=== PATIENT | female | born 1985 | race Caucasian/White ===

== ENCOUNTER 2017-07-30 17:28 | Emergency (ER) | payer OTHER ==
[~2017-07-30] VITALS: Ht 162.6 cm; Wt 99.0 kg
[~2017-07-30 17:28] MED LIST: GLUCTAB PO; MACR100C PO; XANA1TAB6 PO
[2017-07-30 17:39] VITALS: BP 113/53; PULSE 89; RESP 16; TEMP 98.7; O2SAT 100
[2017-07-30] MEDS ORDERED: METF500T4 PO (18:00)
[2017-07-30] MEDS ORDERED: PREN1PAK2 PO (18:01)
--- NOTE | 2017-07-30 18:10 | PD ---
HPI Chief Complaint: Related Problem Time Seen by Provider: 17:57 Travel History International Travel<30 days: No Contact w/Intl Traveler<30days: No Traveled to known affect area: No History of Present Illness HPI Patient is a 31-year-old female presents emergency department for evaluation of possible and intermittent vaginal bleeding. Patient states 2 weeks ago she was seen by Dr. Jones who told her she likely had had a miscarriage. She states that since that time she continues to have positive test and wonders if she is still . She denies any vaginal bleeding and abdominal pain dysuria vaginal discharge today. She states that her bleeding stopped several days ago. She is coming by her brother, significant other and mother. She states she had a bedside ultrasound of her abdomen but not transvaginally [address] Jones. Denies any fevers constipation abdominal pain nausea vomiting. symptoms have resolved, 2 weeks ago on the onset, associated signs symptoms as above, context as above. PFSH Past Medical History Arthritis: No Asthma: No Autoimmune Disease: No Blood Disorders: No Anxiety: Yes Depression: Yes Heart Rhythm Problems: No Cancer: No Cardiovascular Problems: No High Cholesterol: No Chemotherapy: No Chest Pain: No Congestive Heart Failure: No COPD: No Cerebrovascular Accident: No Diabetes: No Diminished Hearing: No Endocrine: No Gastrointestinal Disorders: No GERD: Yes Glaucoma: No Genitourinary: No Headaches: No Hepatitis: No Hiatal Hernia: No Heparin Induced Thrombocytopen: No Hypertension: No Immune Disorder: No Implanted Vascular Access Dvce: No Kidney Stones: No Medical other: No Musculoskeletal: Yes (HX OF BILAT KNEE DISLOCATION) Neurologic: No Psychiatric: No Reproductive: Yes (POLYCYSTIC OVARIAN DISORDER, HIGH TESTOSTERONE LEVELS) Respiratory: No Migraines: No Myocardial Infarction: No Radiation Therapy: No Renal Failure: No Seizures: No Sickle Cell Disease: No Sleep Apnea: No Thyroid Disease: No Ulcer: No ?: Unknown LMP: 06/05/2017 : 0 Ovarian Cysts: Yes Past Surgical History Abdominal Surgery: No AICD: No Appendectomy: No Arteriovenous Shunt: No Cardiac Surgery: No Cholecystectomy: No Ear Surgery: No Endocrine Surgery: No Eye Surgery: No Genitourinary Surgery: No Gynecologic Surgery: Yes (CYSTECTOMY BILAT:2009) Insulin Pump: No Joint Replacement: No Neurologic Surgery: No Oral Surgery: No Pacemaker: No Thoracic Surgery: No Other Surgery: Yes (CYST REMOVED FROM BEHIND RIGHT EAR AT AGE 1) Social History Alcohol Use: Yes (OCCASIONAL) Tobacco Use: No (QUIT 2008) Substance Use: No Allergies-Medications (Allergen,Severity, Reaction): Coded Allergies: ciprofloxacin (Unverified Allergy, Severe, Cramping, 07/30/17) iodine (Unverified Allergy, Severe, Anaphylaxis, 07/30/17) potassium iodide (Unverified Allergy, Severe, Anaphylaxis, 07/30/17) povidone-iodine (Unverified Allergy, Severe, Anaphylaxis, 07/30/17) sodium iodide (Unverified Allergy, Severe, Anaphylaxis, 07/30/17) sodium iodide (Unverified Allergy, Severe, Anaphylaxis, 07/30/17) prednisone (Unverified Allergy, Mild, Hives, 07/30/17) Reported Meds & Prescriptions Reported Meds & Active Scripts Active Reported Citranatal Dha Pack ( W/O Vit A W/ Fe Carbo Pack) 27-1 & 250 Mg Pack 1 Ea PO DAILY 30 day supply. Metformin ER (Metformin HCl) 500 Mg [place] 500 Mg PO DAILY With evening meal Review of Systems Except as stated in HPI: all other systems reviewed are Neg Physical Exam Narrative GENERAL: Well-developed well-nourished, no obvious distress SKIN: Focused skin assessment warm/dry. HEAD: Atraumatic. Normocephalic. EYES: Pupils equal and round. No scleral icterus. No injection or drainage. ENT: No nasal bleeding or discharge. Mucous membranes pink and moist. NECK: Trachea midline. No JVD. CARDIOVASCULAR: Regular rate and rhythm. No murmur appreciated. RESPIRATORY: No accessory muscle use. Clear to auscultation. Breath sounds equal bilaterally. GASTROINTESTINAL: Abdomen soft, non-tender, nondistended. Hepatic and splenic margins not palpable. MUSCULOSKELETAL: No obvious deformities. No clubbing. No cyanosis. No edema. NEUROLOGICAL: Awake and alert. No obvious cranial nerve deficits. Motor grossly within normal limits. Normal speech. PSYCHIATRIC: Appropriate mood and affect; insight and judgment normal. Data Data Last Documented VS Vital Signs Date Time Temp Pulse Resp B/P (MAP) Pulse Ox O2 Delivery O2 Flow Rate FiO2 07/30/17 20:50 72 16 112/66 (81) 99 07/30/17 19:49 Room Air 07/30/17 17:39 98.7 Orders Orders Basic Metabolic Panel (Bmp) (07/30/17 18:08) Beta Hcg (Quant/Titer) (07/30/17 18:08) Urinalysis - C+S If Indicated (07/30/17 18:08) Iv Access Insert/Monitor (07/30/17 18:08) Ecg Monitoring (07/30/17 18:08) Oximetry (07/30/17 18:08) Sodium Chloride 0.9% Flush (Ns Flush) (07/30/17 18:15) Ed Urine Pregnancytest Poc (07/30/17 18:08) Abo/Rh Blood Type (07/30/17 18:11) Ed Discharge Order (07/30/17 20:35) Labs Laboratory Tests Test 07/30/17 18:21 Urine Collection Type CLEAN CATCH Urine Color YELLOW Urine Turbidity CLEAR Urine pH 7.0 Urine Specific [place] 1.020 Urine Protein NEG mg/dL Urine Glucose (UA) NEG mg/dL Urine Ketones NEG mg/dL Urine Occult Blood TRACE Urine Nitrite NEG Urine Bilirubin NEG Urine Leukocyte Esterase SMALL Urine WBC 3-5 /hpf Urine Squamous Epithelial Cells 0-5 /hpf Microscopic Urinalysis Comment CULT NOT INDICATED Blood Urea Nitrogen 8 MG/DL Creatinine 0.58 MG/DL Random Glucose 92 MG/DL Calcium Level 8.6 MG/DL Sodium Level 139 MEQ/L Potassium Level 3.8 MEQ/L Chloride Level 103 MEQ/L Carbon Dioxide Level 27.5 MEQ/L Anion Gap 9 MEQ/L Estimat Glomerular Filtration Rate 121 ML/MIN Human Chorionic Gonadotropin, Quant 44 MIU/ML MDM Medical Decision Making Medical Screen Exam Complete: Yes Emergency Medical Condition: Yes Differential Diagnosis Completed miscarriage, Rh mismatch, ectopic unlikely. Narrative Course Patient roomed emergency department, initial thought was to undergo transvaginal ultrasound to rule out ectopic however the patient's hCG returns at 44. Given that she's had positive test for 2 weeks this is highly consistent with a completed miscarriage. Given that she's not having any abdominal pain or vaginal bleeding at this time there is no indication for transvaginal ultrasound. The patient is Rh+ by testing here today. Labs are otherwise reassuring and the patient's physical exam is benign. Had a lengthy discussion with the patient regarding my impression that coincides with Dr. Merritt this is a completed miscarriage. I recommended for her to either have a repeat test by urine at home for repeat beta hCG here or with Dr. Merritt in 48 hours to confirm the diagnosis. She verbalized understanding and agreement. Discussed with her return to ED criteria including abdominal pain or increased vaginal bleeding at which point she should return to the emergency department sooner. She is stable for discharge. Diagnosis Primary Impression: Miscarriage Referrals: Farzana Jones MD Additional Instructions: Recommend follow up with Dr. Jones. As discussed, likely this represents a miscarriage. You can return to the ER or Dr. Jones in 48 hours for repeat blood work to confirm or can take a home test in a week. If you start bleeding or have pain return to the ER sooner. Disposition: 01 DISCHARGE HOME Condition: Stable Piter Syed MD Jul 30, 2017 18:10
[2017-07-30] MEDS ORDERED: SODIUM CHLORIDE 0.9% FLUSH 10 ML FLUSH IV FLUSH PRN (18:15)
[2017-07-30 18:32] VITALS: O2SAT 97
[2017-07-30 18:32] LABS: BILIRUBIN, URINE NEG (NEG); BLOOD, URINE TRACE (NEG); GLUCOSE,URINE NEG (NEG); KETONE, URINE NEG (NEG); NITRITE,URINE NEG (NEG); URINE LEUKOCYTE ESTERASE SMALL (NEG)
[2017-07-30 18:41] LABS: URINE COLOR YELLOW (YELLW/STRAW)
[2017-07-30 18:42] LABS: CALCIUM 8.6 MG/DL (8.5-10.1); SQUAMOUS EPITHELIAL CELL URINE 0-5 /hpf (0-5)
[2017-07-30 18:43] LABS: BICARBONATE 27.5 MEQ/L (21.0-32.0)
[2017-07-30 18:46] LABS: CREATININE 0.58 MG/DL (0.50-1.00)
[2017-07-30 19:49] VITALS: BP 132/69; PULSE 89; RESP 16; O2SAT 98
[2017-07-30 20:50] VITALS: BP 112/66
== END 2017-07-30 20:50 | disposition home or self-care (01) ==
LOC: PHED 17:28
DX: O03.9 Complete or unspecified spontaneous abortion without complication (principal)
CPT/HCPCS: 80048; 81001; 84702; 84703; 86900; 86901; 99283